=== PATIENT | male | born 1935 | race Caucasian/White ===

== ENCOUNTER 2017-08-12 13:05 | Inpatient (IN) | payer OTHER ==
[~2017-08-12] VITALS: Ht 172.7 cm; Wt 54.1 kg
--- NOTE | ~2017-08-12 | CATHLAB ---
[facility] [address] [place] [address] INVASIVE PROCEDURE REPORT Name: OLIVIA HINKLE Room #: 214-P ADM IN M.R.#: [id number] Admission: 08/12/17 Attend Phys: Alisha Bradford Discharge: Date of : 35 Date of Service: 08/13/17 1238 Report #: [id number] THIS REPORT FOR: //name// APPROVED REPORT Patient Details Patient Status: In-Patient Room #: The patient is a 82 year-old male Event Personnel Quan Jung Piano Tuner, Bigg Cali RN, Aline Harding, Mikie Ace Monitor Procedures Performed Left Heart Cath w/or w/o Coronaries [id number] [facility] Indication Dyspnea, Pre-op clearance Risk Factors Peripheral Vascular Disease, Hypercholesterolemia, Hypertension, Tobacco History () Procedure Narrative The Right Groin^ was infiltrated with 1% Lidocaine subcutaneous anesthesia. A PINNACLE 5FR Sheath #[id number] sheath was inserted into the RFA^. Coronary angiography was performed using coronary diagnostic catheters. The right coronary system was accessed and visualized with a JR4 catheter. The left coronary system was accessed and visualized with a JL4 catheter. The left ventricle was accessed and visualized with a PIGTAIL catheter. Left ventricular/Aortic Valve gradient assessed . Left ventriculogram was performed in 30 degree projection. The patient tolerated the procedure well and there were no complications associated with the procedure. Intraoperative Conscious Sedation Sedation start time: 8:14 Case end Time: 8:231 Versed mg Fluoro Time: 2.00 minutes Dose: 302 mGy Contrast Type and Amount: Visipaque 125 ml Coronary Angiography [facility] [address] [place] [address] INVASIVE PROCEDURE REPORT Name: OLIVIA HINKLE Room #: 214-P [facility] IN [facility]#: [id number] Admission: 08/12/17 Attend Phys: Alisha Bradford Discharge: Date of : 35 Date of Service: 08/13/17 1238 Report #: [id number] The patient's coronary anatomy is left dominant. Diagnostic Cath Left Main patent, no flow limiting lesions LAD 70% ostial stenosis, moderate lesion in the mid segment, 40%. Diagonal 1 Patent, no flow limiting lesions. Circumflex Dominant vessel with mild disease in the proximal segment, 30%. OM1 Patent, no flow limiting lesions. OM2 Patent, no flow limiting lesions. L PDA Patent, no flow limiting lesions. Right Coronary Small-caliber vessel, no flow limiting lesions. Left Ventriculography The left ventricle is normal in size with normal contractility. The left ventricular ejection fraction is estimated to be 60%. Hemodynamics The aortic pressure is 179/77 mmHg with a mean of 117 mmHg. The left ventricular pressure is 212/7 mmHg with a mean of mmHg. The left ventricular end diastolic pressure is 19 mmHg. There was no gradient across the aortic valve upon pullback. Pullback from the left ventricle to the aorta revealed no gradient across the aortic valve. Conclusion 1. Severe stenosis in the ostium of the LAD, recommend staged angioplasty procedure. 2. Left dominant system. 3. Normal LV systolic function. <ELECTRONICALLY SIGNED> By: Quan Jung MD 08/13/17 1238 1238 1238 Quan Jung MD /INF
--- NOTE | ~2017-08-12 | EKG ---
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 MANCIA : 1935 Requested By: Maxime Spears Order Number: [id number] MD: Vijay Shoemaker Measurements Intervals [place] Rate: 58 P: 0 NM: 225 QRS: 63 QRSD: 93 T: 84 QT: 413 QTc: 406 Interpretive Statements Sinus rhythm Prolonged NM interval Borderline ST depression, lateral leads Compared to ECG 01/02/2015 08:26:13 Sinus bradycardia no longer present ST (T wave) deviation still present Electronically Signed On 08-14-2017 13:34:30 CDT by Vijay Shoemaker [email or web address] <ELECTRONICALLY SIGNED> By: Vijay Shoemaker MD 08/14/17 1334 1057 1057 Vijay Shoemaker MD /EPI
--- NOTE | ~2017-08-12 | 2DMMODE ---
[facility] [address] [place] [address] 2 D/M-MODE ECHOCARDIOGRAM Name: OLIVIA HINKLE Room #: 214-P [facility] IN ..#: [id number] Admission: 08/12/17 Attend Phys: Alisha Bradford Discharge: Date of : 35 Date of Service: 08/13/17 1028 Report #: [id number] THIS REPORT FOR: //name// APPROVED REPORT Study performed: 08/13/2017 09:09:49 EXAM: Comprehensive 2D, Doppler, and color-flow Echocardiogram Patient Location: [facility] Area Room #: 1 Status: routine BSA: 1.64 HR: 47 bpm BP: 135/36 mmHg Other Information Study Quality: Adequate Indications CVA/TIA Dyspnea Hypertension/HDD Echo Enhancing Agent Indication: Rule out Shunt Agent(s) / Amount(s) Used: Agitated Saline 7 cc 2D Dimensions RVDd: 34.89 mm LVEF(%): 74.96 (>50%) IVSd: 10.86 (7-11mm) LVOT Diam: 20.32 (18-24mm) LVDd: 42.73 mm PWd: 10.96 (7-11mm) Ascending Ao: 30.54 (22-36mm) LVDs: 24.16 (25-40mm) Aortic Root: 27.40 mm IVC: 15.00 mm Huang's LVEF: 74.96 % Volumes Left Atrial Volume (Systole) Single Plane 4CH: 100.92 mL Single Plane 2CH: 79.30 mL LA ESV Index: 60.00 mL/m2 Aortic Valve AoV Peak Tino.: 1.15 m/s AO Peak Gr.: 5.33 mmHg LVOT Max P.96 mmHg LVOT Max V: 0.86 m/s [facility] [place] [address] 2 D/M-MODE ECHOCARDIOGRAM Name: OLIVIA HINKLE Room #: 214-P [facility] IN ..#: [id number] Admission: 08/12/17 Attend Phys: Alisha Bradford Discharge: Date of : 35 Date of Service: 08/13/17 1028 Report #: [id number] JOLENE Vmax: 2.42 cm2 Mitral Valve E/A Ratio: 0.9 MV Decel. Time: 316.71 ms MV E Max Tino.: 0.78 m/s MV A Tino.: 0.89 m/s MV PHT: 91.85 ms IVRT: 133.79 ms Pulmonary Valve PV Peak Tino.: 0.74 m/s PV Peak Gr.: 2.17 mmHg Pulmonary Vein P Vein S: 0.48 m/s P Vein A: 0.25 m/s P Vein D: 0.30 m/s P Vein A Dur.: 101.5 msec P Vein S/D Ratio: 1.60 Tricuspid Valve TR Peak Tino.: 2.03 m/s TR Peak Gr.: 16.49 mmHg PA Pressure: 21.00 mmHg Left Ventricle The left ventricle is normal size. There is normal left ventricular wall thickness. The left ventricular systolic function is normal. The left ventricular ejection fraction is within the normal range. LVEF is 60-65%. Grade I - abnormal relaxation pattern. Right Ventricle The right ventricle is normal size. The right ventricular systolic function is normal. Atria Left atrium is dilated. Small PFO is noted by bubble study. Right atrium is dilated. Aortic Valve The Aortic valve is sclerotic. No aortic regurgitation is present. There is no aortic valvular stenosis. Mitral Valve The mitral valve is normal in structure. Trace mitral regurgitation. No evidence of mitral valve stenosis. Tricuspid Valve [facility] [address] [place] [address] 2 D/M-MODE ECHOCARDIOGRAM Name: MANANOLIVIA Danna Room #: 214-P [facility] IN .#: [id number] Admission: 08/12/17 Attend Phys: Alisha Bradford Discharge: Date of : 35 Date of Service: 08/13/17 1028 Report #: [id number] The tricuspid valve is normal in structure. There is trace tricuspid regurgitation. The right atrial pressure is estimated at mmHg. There is no pulmonary hypertension. Pulmonic Valve The pulmonary valve is normal in structure. There is no pulmonic valvular regurgitation. Great Vessels The aortic root is normal in size. IVC is normal in size and collapses >50% with inspiration. Pericardium There is no pericardial effusion. <Conclusion> The left ventricle is normal size. The left ventricular systolic function is normal. Grade I - abnormal relaxation pattern. The right ventricle is normal size. Left atrium is dilated. Right atrium is dilated. The Aortic valve is sclerotic. There is no aortic valvular stenosis. Trace mitral regurgitation. Small PFO is noted by bubble study. <ELECTRONICALLY SIGNED> By: Quan Jung MD 08/13/17 1028 1028 1028 Quan Jung MD /INF
[~2017-08-12 13:05] MED LIST: ALBUTEROL INH INH; ALLOPURINOL 10100 M1 PO; COLCHICINE 0.60.6 M1 PO; ELA-MAX30 GM TP; FLOMAX0.4 MG PO; HYDRALAZINE 2525 MG PO; HYDROCHLOROTHIA25 M2 PO; IBUPROFEN 200200 M1 PO; IRON325 PO; LIDOCAINE 22 %/30 GM TP; LISINOPRIL-HCT1 EAC2; LISINOPRIL10 MG PO; LISINOPRIL20 MG PO; LOPRESSOR25 PO; LORTAB 5 MG/5001 TA1 PO; NORVASC5 MG PO; PERCOCET PO; PROAIR HFA8.5 GM INH
[2017-08-12 15:00] VITALS: BP 160/66
[2017-08-12 16:38] LABS: CHOLESTEROL 180 mg/dL (<200); HDL CHOLESTEROL 62 mg/dL (>40); LDL CHOLESTEROL 99 mg/dL (<100); TC:HDL 2.9 Ratio (Not establshd); TRIGLYCERIDE 98 mg/dL (<150); VLDL 20 mg/dL (<40)
[2017-08-12 20:04] VITALS: BP 115/54
[2017-08-12 23:13] VITALS: BP 121/52
[2017-08-13 03:13] LABS: HEMATOCRIT 28.9 % (42.0-52.0); HEMOGLOBIN 9.7 gm/dL (14.0-18.0); MCH 31.5 pg (26.0-34.0); MCHC 33.7 g/dL (28.0-37.0); MCV 93.6 fL (80.0-100.0); RBC 3.09 mil/uL (4.50-6.00); RDW 12.8 % (10.5-14.5); WBC 6.2 thou/uL (4.0-11.0)
[2017-08-13 03:22] LABS: CALCIUM 8.6 mg/dL (8.5-10.1); CREATININE 0.8 mg/dL (0.7-1.3); POTASSIUM 3.9 mmol/L (3.5-5.1)
[2017-08-13 04:03] VITALS: BP 131/60
[2017-08-13 16:00] VITALS: BP 126/46
[2017-08-13 20:25] VITALS: BP 97/41
[2017-08-13 23:08] VITALS: BP 110/56
[2017-08-14 04:08] VITALS: BP 119/56
[2017-08-14 04:43] LABS: HEMATOCRIT 30.2 % (42.0-52.0); MCH 31.3 pg (26.0-34.0); MCV 94.9 fL (80.0-100.0); RBC 3.19 mil/uL (4.50-6.00); RDW 13.2 % (10.5-14.5); WBC 11.4 thou/uL (4.0-11.0)
[2017-08-14 04:54] LABS: CALCIUM 8.9 mg/dL (8.5-10.1)
[2017-08-14 07:35] VITALS: BP 149/58
[2017-08-14 11:27] VITALS: BP 133/85
[2017-08-14 13:44] LABS: URINE BILIRUBIN NEGATIVE (Negative); URINE BLOOD TRACE (Negative); URINE COLOR YELLOW; URINE GLUCOSE-RANDOM* NEGATIVE (Negative); URINE KETONES NEGATIVE (Negative); URINE NITRITE NEGATIVE (Negative); URINE PROTEIN (DIPSTICK) TRACE (Negative); URINE UROBILINOGEN 0.2 E.U./dl (0.2-1.0)
[2017-08-14 14:11] LABS: CASTS None Seen /LPF (None Seen); SQUAMOUS 0-3 Few /LPF (0-3)
[2017-08-14 14:12] LABS: BACTERIA >30 Many /HPF (None Seen); CRYSTALS None Seen /LPF (None Seen); URINE RBC 0-2 Rare /HPF (0-2); URINE WBC >25 Many /HPF (0-5); WBC CLUMPS Few (None Seen)
[2017-08-14] MEDS ORDERED: ADULT LOW DOSE81 MG PO (14:20)
[2017-08-14] MEDS ORDERED: ATORVASTATIN CA40 MG PO (14:20)
[2017-08-14 14:59] VITALS: BP 133/85
[2017-08-14 15:15] VITALS: BP 107/57
== END 2017-08-14 15:53 | disposition home or self-care (01) | DRG 253 ==
LOC: 2N 13:05
PROVIDERS: Nuclear Medicine Nuclear Cardiology; Nurse Practitioner; Nurse Practitioner Adult Health; Psychiatry & Neurology Neurology
PROC: 4A023N7 Measurement of Cardiac Sampling and Pressure, Left Heart, Percutaneous Approach (ICD-10-PCS; principal; 2017-08-13)
PROC: B2111ZZ Fluoroscopy of Multiple Coronary Arteries using Low Osmolar Contrast (ICD-10-PCS; 2017-08-13)
PROC: B3181ZZ Fluoroscopy of Bilateral Internal Carotid Arteries using Low Osmolar Contrast (ICD-10-PCS; 2017-08-13)
PROC: B4181ZZ Fluoroscopy of Bilateral Renal Arteries using Low Osmolar Contrast (ICD-10-PCS; 2017-08-13)
PROC: B2151ZZ Fluoroscopy of Left Heart using Low Osmolar Contrast (ICD-10-PCS; 2017-08-13)
PROC: 047H3DZ Dilation of Right External Iliac Artery with Intraluminal Device, Percutaneous Approach (ICD-10-PCS; 2017-08-13)
DX: I73.9 Peripheral vascular disease, unspecified (principal); G45.9 Transient cerebral ischemic attack, unspecified; I10 Essential (primary) hypertension; I25.10 Atherosclerotic heart disease of native coronary artery without angina pectoris; N40.0 Benign prostatic hyperplasia without lower urinary tract symptoms; F17.210 Nicotine dependence, cigarettes, uncomplicated; R47.81 Slurred speech; D50.9 Iron deficiency anemia, unspecified; R09.89 Other specified symptoms and signs involving the circulatory and respiratory systems; F19.10 Other psychoactive substance abuse, uncomplicated; E78.5 Hyperlipidemia, unspecified; G56.01 Carpal tunnel syndrome, right upper limb; Z98.42 Cataract extraction status, left eye; Z79.899 Other long term (current) drug therapy; Z79.82 Long term (current) use of aspirin; Z90.49 Acquired absence of other specified parts of digestive tract; Z98.41 Cataract extraction status, right eye; Z93.0 Tracheostomy status; Z82.3 Family history of stroke
CPT/HCPCS: 10081

== ENCOUNTER 2017-08-17 05:23 | Inpatient (IN) | payer OTHER ==
[~2017-08-17] VITALS: Ht 172.7 cm; Wt 52.2 kg
--- NOTE | ~2017-08-17 | O ---
[facility] [place] [address] [place] [address] OPERATIVE REPORT Name: OLIVIA HINKLE Room #: 249-P [facility] IN ..#: [id number] Admission: 08/17/17 Attend Phys: Maxime Spears MD Discharge: 08/18/17 Date of : 35 Report #: [id number] THIS REPORT FOR: //name// CC: Maxime Spears Physician staff [facility] DATE OF SERVICE: 08/17/2017 PREOPERATIVE DIAGNOSES: Left internal carotid artery stenosis, symptomatic, preoperative transient ischemic attack. FINAL DIAGNOSES: Left internal carotid artery stenosis, symptomatic, preoperative transient ischemic attack. OPERATIVE PROCEDURE PERFORMED: Left internal carotid endarterectomy with EEG monitoring. SURGEON: Maxime Spears MD. ASSISTANTS: Barbara. ANESTHESIA: General. OPERATIVE INDICATIONS: The patient is an 82-year-old male who has presented to medical care to his physician at [facility] with symptoms consistent with left hemispheric TIA. He underwent evaluation with a carotid ultrasound suggesting a high grade stenosis. He was transferred here to [facility] and underwent angiography showing evidence of a 90% left internal carotid artery stenosis at the site of the carotid bulb. He is admitted at this time and brought to the operating room for left internal carotid endarterectomy. OPERATIVE SUMMARY: The patient was brought to the operative room and placed on the OR table in supine position. After anesthesia was induced via the general endotracheal route and monitoring lines have been positioned, the patient was prepped and draped in sterile fashion with chlorhexidine. I made an oblique incision in the left neck medial to the sternocleidomastoid muscle, dissected down medial to that muscle, and I opened the contents of the carotid sheath. The common internal and external carotid arteries were dissected free from surrounding tissue. The vagus, hypoglossal, ansa cervicalis nerves were identified, and care was taken not to injure them during this case. We gave the patient 10,000 units of intravenous heparin. Clamps were placed on the internal, then common and then external carotid arteries. The common carotid arteriotomy was made and extended up into the internal carotid artery. A 14-Occitan shunt was then placed in the internal carotid artery and then positioned in the common carotid artery to provide blood flow to the brain [facility] [address] [place] [address] OPERATIVE REPORT Name: OLIVIA HINKLE Room #: 249-P [facility] IN [facility].#: [id number] Admission: 08/17/17 Attend Phys: Maxime Spears MD Discharge: 08/18/17 Date of : 35 Report #: [id number] during this procedure. EEG was monitored during this case, and there were no changes on the EEG noted throughout the case. We then dissected the plaque from the vessel wall. We amputated proximally in the common carotid artery, performed an eversion endarterectomy of the external carotid artery. Distally in the ICA, there was a significant shelf noted. We amputated the plaque at this site and debrided it carefully. I then tacked the distal intima with 7-0 Prolene, utilizing 5 or 6 sutures of 7-0 Prolene. Once convinced that the intima was well attached to the remainder of the vessel wall, I then closed the arteriotomy with running 6-0 Prolene suture. Prior to completing the closure, the shunt was removed. The site was irrigated with heparinized saline solution, was flushed both retrograde and antegrade and was de-aired by releasing the clamp on the external carotid artery. The closure was completed and then the clamp on the common carotid artery was released. Lastly, the clamp on the internal carotid artery was released. No additional closure sutures were required. The Doppler signals were excellent in the common, internal and external carotid arteries. Protamine was given to reverse the heparin. Once satisfactory hemostasis was achieved, the wound was closed in multiple layers with absorbable suture. The procedure was completed. The patient was taken to the postanesthesia care unit in stable condition. Neurologic exam in the PACU showed no evidence of neurologic deficits. Estimated blood loss is 65 mL. There were no drains placed. <ELECTRONICALLY SIGNED> By: Maxime Spears MD 08/20/17 0703 1403 1437 Maxime Spears MD /nt
[~2017-08-17 05:23] MED LIST changes: +ADULT LOW DOSE81 MG PO; +ATORVASTATIN CA40 MG PO
[2017-08-17 07:00] VITALS: BP 154/60
[2017-08-18 05:26] LABS: HEMATOCRIT 24.9 % (42.0-52.0); HEMOGLOBIN 8.4 gm/dL (14.0-18.0); MCH 31.2 pg (26.0-34.0); MCHC 33.6 g/dL (28.0-37.0); MCV 92.7 fL (80.0-100.0); RBC 2.69 mil/uL (4.50-6.00); RDW 13.2 % (10.5-14.5); WBC 8.6 thou/uL (4.0-11.0)
[2017-08-18 05:33] LABS: CALCIUM 8.4 mg/dL (8.5-10.1); CREATININE 0.9 mg/dL (0.7-1.3); POTASSIUM 4.5 mmol/L (3.5-5.1)
[2017-08-18] MEDS ORDERED: NORVASC10 MG PO (12:08)
[2017-08-18] MEDS ORDERED: CLOPIDOGREL75 MG PO (12:08)
[2017-08-18] MEDS ORDERED: ASPIR 8181 MG PO (12:08)
[2017-08-18 13:16] VITALS: BP 194/57
== END 2017-08-18 16:30 | disposition home or self-care (01) | DRG 38 ==
LOC: ICU 05:23 → TBA 05:23 → ICU 11:15 → PRE 13:50 → ENTRNSPT 08-18 16:15 → ICU 08-18 16:30
PROVIDERS: Nurse Practitioner
DX: I65.22 Occlusion and stenosis of left carotid artery (principal); D62 Acute posthemorrhagic anemia; I10 Essential (primary) hypertension; J44.9 Chronic obstructive pulmonary disease, unspecified; N40.0 Benign prostatic hyperplasia without lower urinary tract symptoms; E78.5 Hyperlipidemia, unspecified; I25.10 Atherosclerotic heart disease of native coronary artery without angina pectoris; I73.9 Peripheral vascular disease, unspecified; F17.210 Nicotine dependence, cigarettes, uncomplicated; F10.10 Alcohol abuse, uncomplicated; Z95.820 Peripheral vascular angioplasty status with implants and grafts; Z90.49 Acquired absence of other specified parts of digestive tract; Z98.42 Cataract extraction status, left eye; Z98.41 Cataract extraction status, right eye; Z79.899 Other long term (current) drug therapy; D50.9 Iron deficiency anemia, unspecified
CPT/HCPCS: 10078; 50010; 50101; 50386; 50417; 50455; 51301; 56524; 56526; 56528; 56534; 62110; 62900; 65020; 65040; 70005

== ENCOUNTER → 2018-08-06 | Outpatient (CLI) | payer OTHER ==
[~2018-08-06] MED LIST changes: +AMLODIPINE BESYL5 MG PO; +ASPIR 8181 MG PO; +CLOPIDOGREL75 MG PO; +NORVASC10 MG PO; +PANTOPRAZOLE SO40 M1 PO
== END ==
LOC: PET 07:33
DX: R91.8 Other nonspecific abnormal finding of lung field (principal); J43.2 Centrilobular emphysema; I10 Essential (primary) hypertension; E78.5 Hyperlipidemia, unspecified